=== PATIENT | female | born 1960 | race Native Hawaiian/Other Pacific Islander ===

== ENCOUNTER 2016-06-03 09:22 | Outpatient (CLI) | payer OTHER ==
[~2016-06-03 09:22] MED LIST: ALPR0.5T24 PO; AMIT25TA22 PO; BUDE1AER5 INH; CEPH500C20 PO; DONEPEZIL HCL23 MG PO; FLUOXETINE40 MG PO; FLUTMIS6 INH; GABA300C2 PO; HYDR10TA47 PO; HYDR4TAB12 PO; LIPITOR20 MG PO; LOSA50TA8 PO; MELOXICAM7.5 MG OR; NAMENDA XR28 MG OR; OMEP40CA PO; PHENTERMINE37.5 MG OR; PROAIR HFA IN; PROVIL200 MG OR; RANI150T78 PO; ROBAXIN-750750 MG PO; SMZ/TMP DS1 TAB OR; TRAM50TA PO; TRAZODONE150 MG PO; TRAZODONE300 MG PO; TRIA0.1O13 TOP; [UNRECOGNIZED DRUG - CODE] PO
== END 2016-06-03 19:11 | disposition home or self-care (01) ==
LOC: RAD 09:22
DX: M25.561 Pain in right knee (principal); M25.562 Pain in left knee

== ENCOUNTER 2016-11-01 13:55 | Outpatient (CLI) | payer OTHER ==
[2016-11-01 14:33] LABS: PLATELET COUNT 398 K/uL (152-353)
[2016-11-01 15:02] LABS: POTASSIUM 3.1 mmol/L (3.6-5.2); SODIUM 136 mmol/L (136-145)
== END 2016-11-01 18:58 | disposition home or self-care (01) ==
LOC: LAB 13:55
PROVIDERS: Family Medicine
DX: I10 Essential (primary) hypertension (principal); E66.01 Morbid (severe) obesity due to excess calories; Z79.899 Other long term (current) drug therapy; Z83.3 Family history of diabetes mellitus; Z51.81 Encounter for therapeutic drug level monitoring
CPT/HCPCS: 80053; 80061; 81000; 82043; 82570; 83036; 83735; 84439; 84443; 84550; 85027

== ENCOUNTER 2016-11-19 09:03 | Outpatient (CLI) | payer OTHER | END 2016-11-19 19:04 | disposition home or self-care (01) | LOC: MAMMO 09:03 | DX: Z12.31 Encounter for screening mammogram for malignant neoplasm of breast (principal) ==

== ENCOUNTER 2016-12-30 08:54 | Outpatient (CLI) | payer OTHER | END 2016-12-30 10:00 | disposition home or self-care (01) | LOC: US 08:54 | DX: R07.89 Other chest pain (principal); E51.8 Other manifestations of thiamine deficiency; R63.5 Abnormal weight gain | CPT/HCPCS: 36415; 82607; 84425; 84443; 86318 ==

== ENCOUNTER 2017-01-07 13:50 | Outpatient (CLI) | payer OTHER ==
[2017-01-07 14:26] LABS: POTASSIUM 3.3 mmol/L (3.6-5.2)
== END 2017-01-07 14:50 | disposition home or self-care (01) ==
LOC: LAB 13:50
PROVIDERS: Family Medicine
DX: I10 Essential (primary) hypertension (principal); E03.8 Other specified hypothyroidism; E87.6 Hypokalemia
CPT/HCPCS: 80053; 83735; 84439; 84443

== ENCOUNTER 2017-06-13 11:06 | Outpatient (CLI) | payer OTHER | END 2017-06-13 22:26 | disposition home or self-care (01) | LOC: LABW 11:06 | DX: E51.8 Other manifestations of thiamine deficiency (principal); E53.8 Deficiency of other specified B group vitamins; Z79.899 Other long term (current) drug therapy | CPT/HCPCS: 36415; 82607; 84425; 84443 ==

== ENCOUNTER 2017-09-01 07:55 | Outpatient (CLI) | payer OTHER | END 2017-09-01 20:12 | disposition home or self-care (01) | LOC: RAD 07:55 | DX: M85.89 Other specified disorders of bone density and structure, multiple sites (principal) ==

== ENCOUNTER 2017-12-08 08:54 | Outpatient (CLI) | payer OTHER ==
[2017-12-08 09:18] LABS: PLATELET COUNT 337 K/uL (152-353)
[2017-12-08 10:29] LABS: POTASSIUM 2.9 mmol/L (3.6-5.2)
== END 2017-12-08 19:15 | disposition home or self-care (01) ==
LOC: LABW 08:54
PROVIDERS: Family Medicine
DX: M25.552 Pain in left hip (principal); E53.8 Deficiency of other specified B group vitamins; E61.1 Iron deficiency; E87.8 Other disorders of electrolyte and fluid balance, not elsewhere classified; E20.0 Idiopathic hypoparathyroidism; E51.9 Thiamine deficiency, unspecified; E61.0 Copper deficiency; E55.9 Vitamin D deficiency, unspecified
CPT/HCPCS: 36415; 80053; 82306; 82607; 82728; 82747; 83970; 84425; 85027

== ENCOUNTER 2018-02-20 09:04 | Outpatient (CLI) | payer OTHER | END 2018-02-20 20:49 | disposition home or self-care (01) | LOC: MAMMO 09:04 → RAD 09:04 → MAMMO 09:30 | DX: M47.816 Spondylosis without myelopathy or radiculopathy, lumbar region (principal); M47.896 Other spondylosis, lumbar region; M54.5 Low back pain; Z13.820 Encounter for screening for osteoporosis; Z12.31 Encounter for screening mammogram for malignant neoplasm of breast ==

== ENCOUNTER 2018-08-12 08:20 | Outpatient (CLI) | payer OTHER ==
[2018-08-12 08:44] LABS: PLATELET COUNT 397 K/uL (152-353)
[2018-08-12 09:00] LABS: POTASSIUM 3.1 mmol/L (3.6-5.2)
== END 2018-08-12 23:31 | disposition home or self-care (01) ==
LOC: LABW 08:20
PROVIDERS: Nurse Practitioner Family
DX: E55.9 Vitamin D deficiency, unspecified (principal); M16.11 Unilateral primary osteoarthritis, right hip; M35.1 Other overlap syndromes; M47.896 Other spondylosis, lumbar region; M79.7 Fibromyalgia; M85.89 Other specified disorders of bone density and structure, multiple sites
CPT/HCPCS: 36415; 80053; 82306; 85027; 85651; 86140

== ENCOUNTER 2018-08-18 08:21 | Outpatient (CLI) | payer OTHER | END 2018-08-18 19:43 | disposition home or self-care (01) | LOC: LABW 08:21 | DX: E87.6 Hypokalemia (principal) | CPT/HCPCS: 36415; 84132 ==

== ENCOUNTER 2018-08-19 07:31 | Outpatient (CLI) | payer OTHER | END 2018-08-19 20:11 | disposition home or self-care (01) | LOC: LABW 07:31 | DX: E87.6 Hypokalemia (principal) | CPT/HCPCS: 36415; 84132 ==

== ENCOUNTER 2018-10-12 10:31 | Outpatient (CLI) | payer OTHER | END 2018-10-12 16:00 | disposition home or self-care (01) | LOC: RAD 10:31 | DX: M25.552 Pain in left hip (principal) ==

== ENCOUNTER → 2019-02-15 11:33 | Outpatient (CLI) | payer OTHER | END | disposition home or self-care (01) | LOC: AMB 11:33 | DX: R53.1 Weakness (principal); W18.39XA Other fall on same level, initial encounter; Y92.89 Other specified places as the place of occurrence of the external cause ==

== ENCOUNTER 2019-02-22 08:07 | Outpatient (CLI) | payer OTHER | END 2019-02-22 21:39 | disposition home or self-care (01) | LOC: MAMMO 08:07 | DX: Z12.31 Encounter for screening mammogram for malignant neoplasm of breast (principal) ==

== ENCOUNTER 2020-06-29 07:32 | Outpatient (CLI) | payer OTHER ==
[2020-06-29 08:14] LABS: PLATELET COUNT 413 K/uL (152-353)
== END 2020-06-29 20:21 | disposition home or self-care (01) ==
LOC: LABW 07:32
PROVIDERS: ATTEND Family Medicine
DX: R00.0 Tachycardia, unspecified (principal); F41.8 Other specified anxiety disorders
CPT/HCPCS: 36415; 84439; 84443; 85027; 93005

== ENCOUNTER 2020-11-01 08:02 | Outpatient (CLI) | payer OTHER | END 2020-11-01 20:33 | disposition home or self-care (01) | LOC: RESP 08:02 | PROVIDERS: ATTEND Family Medicine | DX: Z01.818 Encounter for other preprocedural examination (principal); M32.8 Other forms of systemic lupus erythematosus | CPT/HCPCS: 93005 ==

== ENCOUNTER 2021-02-28 10:35 | Outpatient (CLI) | payer OTHER ==
[2021-02-28 11:18] LABS: PLATELET COUNT 335 K/uL (152-353)
[2021-02-28 11:39] LABS: POTASSIUM 3.2 mmol/L (3.6-5.2)
== END 2021-02-28 20:00 | disposition home or self-care (01) ==
LOC: MAMMO 10:35
PROVIDERS: ATTEND Family Medicine
DX: G47.00 Insomnia, unspecified (principal); I10 Essential (primary) hypertension; E03.9 Hypothyroidism, unspecified; E78.5 Hyperlipidemia, unspecified; G89.4 Chronic pain syndrome; M10.9 Gout, unspecified; E55.9 Vitamin D deficiency, unspecified; Z12.31 Encounter for screening mammogram for malignant neoplasm of breast; R82.90 Unspecified abnormal findings in urine
CPT/HCPCS: 80053; 80061; 81000; 82306; 84439; 84443; 84550; 85027; 87077; 87086; 87088; 87186

== ENCOUNTER 2021-06-25 11:08 | Emergency (ER) | payer OTHER ==
[~2021-06-25] VITALS: Ht 162.6 cm; Wt 84.8 kg
[2021-06-25 11:18] VITALS: BP 160/73; TEMP 97.8
== END 2021-06-25 13:10 | disposition home or self-care (01) ==
LOC: ED 11:08
PROC: 2W3DX1Z Immobilization of Left Lower Arm using Splint (ICD-10-PCS; principal; 2021-06-25)
DX: S52.592A Other fractures of lower end of left radius, initial encounter for closed fracture (principal); W18.39XA Other fall on same level, initial encounter; Y92.89 Other specified places as the place of occurrence of the external cause
CPT/HCPCS: 99283

== ENCOUNTER 2021-07-17 08:55 | Outpatient (CLI) | payer OTHER | END 2021-07-17 19:27 | disposition home or self-care (01) | LOC: RAD 08:55 | PROVIDERS: ATTEND Internal Medicine Pulmonary Disease | DX: R06.09 Other forms of dyspnea (principal) ==

== ENCOUNTER 2022-05-08 09:48 | Outpatient (CLI) | payer OTHER | END 2022-05-08 19:40 | disposition home or self-care (01) | LOC: MAMMO 09:48 | PROVIDERS: ATTEND Family Medicine | DX: Z12.31 Encounter for screening mammogram for malignant neoplasm of breast (principal); Z13.820 Encounter for screening for osteoporosis; N95.8 Other specified menopausal and perimenopausal disorders ==

== ENCOUNTER 2022-06-17 12:00 | Outpatient (CLI) | payer OTHER | END 2022-06-17 18:59 | disposition home or self-care (01) | LOC: RAD 12:00 | PROVIDERS: ATTEND Family Medicine | DX: M79.671 Pain in right foot (principal); S99.821A Other specified injuries of right foot, initial encounter; W19.XXXA Unspecified fall, initial encounter ==